=== PATIENT | female | born 1960 | race Caucasian/White ===

== ENCOUNTER → 2017-03-13 | Day surgery (SDC) | payer BC ==
[~2017-03-13] MED LIST: ACETAMINOPHEN/HYDROcodone 325 MG/5 MG TAB ONE; BUPIVACAINE/EPINEPHRINE 0.25% 50 ML VIAL ONE; KETOROLAC TROMETHAMINE 30 MG/ML (IVP) VIAL IV PUSH ONE; LACTATED RINGER'S 1000 ML INJ 1,000 ML ONE; MIDAZOLAM HCL 2 MG/2 ML VIAL ONE; MORPHINE SULFATE 4 MG/ML INJ ONE; ONDANSETRON HCL 4 MG/2 ML VIAL IV PUSH ONE; PROPOFOL 200 MG/20 ML AMP IV ONE; ceFAZolin INJ 1,000 MG VIAL ONE
--- NOTE | 2017-03-13 16:22 | TN ---
cc: JENNIFER APARICIO MD DATE OF SURGERY: 03/13/2017 ATTENDING PHYSICIAN/SURGEON Dr. Jennifer Aparicio. PREOPERATIVE DIAGNOSIS Left knee torn medial meniscus. POSTOPERATIVE DIAGNOSIS Left knee torn medial meniscus. PROCEDURE Left knee arthroscopy, partial medial meniscectomy. PROCEDURE IN DETAIL Informed consent was obtained. The patient was taken to the operating room and placed in the supine position on the operating table. She was administered general anesthesia by Dr. Yoon of the Anesthesia Department. The patient had been given a gram of Ancef prior to the initiation of the operative procedure. At that time a tourniquet was applied to the left thigh, the left side post was applied to the operating table. The left leg was prepped with Betadine soap followed by Betadine paint. Draping commenced with sterile down sheet, sterile towel about the tourniquet, split sheet, stockinette was applied to the foot and calf and extremity drape was applied. The leg was elevated. A time-out was held and confirmed. At that time the tourniquet was inflated to 300 mmHg. The leg was allowed to flex over the side of the operating table and 18 gauge spinal needle was placed in the region of the lateral infrapatellar portal. This region was infiltrated with 4 ccs of 0.25% Marcaine with epinephrine. Infiltration was also performed in the medial and patellar portal and trans patellar tendon portal region. A small incision was made with 11-blade in the region of the lateral patellar portal. The arthroscopic cannula was placed. A second incision was placed in the region of the trans-patellar tendon portal, inflow cannula was placed, diagnostic arthroscopy commenced. Anterior portion of the medial meniscus in zone three appears satisfactory, however zone two and zone one posterior and more medial aspects of the meniscus, there was a complex degenerative tear, a medial portal was established. This was probed utilizing upbiting basket forceps, Marisela meniscal shaver. The meniscus was debrided to a stable rim. Part of the tear was undersurface horizontal cleavage type tear and the inferior portion of the meniscus was removed. 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 At that time the scope was maneuvered over the intercondylar notch, edge of the lateral compartment, lateral meniscus, popliteus tendon appeared normal. There were very mild chondromalacia changes of the lateral femoral condyle, lateral tibial plateau. Scope was placed in the intercondylar notch. The leg was again flexed over the side of the operative table. The anterior portion of the cruciate ligaments appeared normal. Scope was placed in the posterior medial compartment which appeared normal. Scope could not easily be placed in posterior lateral compartment. The scope was placed in the suprapatellar pouch. There was some mild chondromalacia changes noted in the patella and trochlear groove. There were no pathologic plica seen. At that time the knee was thoroughly irrigated and suctioned, all cannulas were removed. Each portal was closed with single 4-0 Nylon interrupted stitch. Band-Aids, 4x4s, Sof-Rol and Robin wrap were applied to the patient's knee. At that time the tourniquet was deflated. Total tourniquet time was 38 minutes. The patient tolerated the procedure well and was taken to the recovery room in stable condition. At the completion of the procedure sponge counts, instrument counts, needle counts were correct. Estimated blood loss was less than 10 ccs. MD JOSÉ MIGUEL Garrett/YAMILETH /3:37 PM /3:52 PM
== END | disposition home or self-care (01) ==
LOC: ESDC 11:43
PROVIDERS: ATTEND Orthopaedic Surgery
DX: S83.232A Complex tear of medial meniscus, current injury, left knee, initial encounter (principal)
CPT/HCPCS: 01400; 29881; J0690; J1885; J2250; J2270; J2405; J3010; J7120